=== PATIENT | female | born 1955 | race Caucasian/White ===

== ENCOUNTER 2024-04-24 11:37 | Day surgery (SDC) | payer MEDICARE ==
[~2024-04-24] VITALS: Ht 162.6 cm; Wt 63.0 kg
[~2024-04-24 11:37] MED LIST: CALC600C3 PO; CITA20TA6 PO; CYCLOPENTOLATE 1% OPHTH SOLN 2ML BTL OD SCH; DICY1CAP8 PO; MAGN400C PO; META0.52 PO; MIDAZOLAM INJ 2MG/2ML VIAL As Ordered ONE; PHENYLEPHRINE 10% OPHTH SOL 5ML OD PRN; POTA99CA2 PO; VALA500T5 PO; VITA100093 PO
[2024-04-24] MEDS: OFLOXACIN 0.3 % (OCUFLOX) OPTH SOL 5ML OD ONE (12:10)
[2024-04-24] MEDS: LIDOCAINE 3.5 % 1ML OPHTH TOPICAL GEL OU ONE (12:10)
[2024-04-24] MEDS: PHENYLEPHRINE 2.5% OPHTH SOL 2ML OD SCH (12:20)
[2024-04-24] MEDS: TROPICAMIDE 1% OPHTH SOLN 15ML OD SCH (12:20)
[2024-04-24] MEDS: BSS IRRIG/VANCO(10MG)/TOBRA(5MG)/EPINEPH(1:1000-0.5CC)500ML BAG-ORONLY As Ordered ONE (12:32)
[2024-04-24] MEDS: LIDOCAINE 1% SDV 5ML VIAL As Ordered ONE (12:32)
[2024-04-24] MEDS: CEFUROXIME 1MG/0.1ML INTRACAMERAL INJ As Ordered ONE (12:32)
[2024-04-24] MEDS ORDERED: fentaNYL 100 MCG/2 ML INJECTION As Ordered ONE (12:43)
[2024-04-24 13:27] VITALS: BP 138/73; TEMP 97.8; O2SAT 98
== END 2024-04-24 14:00 | disposition home or self-care (01) ==
LOC: M SDC 11:37
PROVIDERS: ATTEND Ophthalmology
DX: H25.9 Unspecified age-related cataract (principal); Z88.0 Allergy status to penicillin; Z88.8 Allergy status to other drugs, medicaments and biological substances; Z79.899 Other long term (current) drug therapy
CPT/HCPCS: 66984; 92015; J0697; J2250; J3010; V2632

== ENCOUNTER 2024-05-15 08:20 | Day surgery (SDC) | payer MEDICARE ==
[~2024-05-15] VITALS: Ht 163.8 cm; Wt 62.8 kg
[~2024-05-15 08:20] MED LIST changes: -CYCLOPENTOLATE 1% OPHTH SOLN 2ML BTL OD SCH; -PHENYLEPHRINE 10% OPHTH SOL 5ML OD PRN; +PHENYLEPHRINE 10% OPHTH SOL 5ML OS PRN
[2024-05-15] MEDS: OFLOXACIN 0.3 % (OCUFLOX) OPTH SOL 5ML OS ONE (09:48)
[2024-05-15] MEDS: LIDOCAINE 3.5 % 1ML OPHTH TOPICAL GEL OU ONE (09:48)
[2024-05-15] MEDS: PHENYLEPHRINE 2.5% OPHTH SOL 2ML OS SCH (09:49)
[2024-05-15] MEDS: TROPICAMIDE 1% OPHTH SOLN 15ML OS SCH (09:49)
[2024-05-15] MEDS: CYCLOPENTOLATE 1% OPHTH SOLN 2ML BTL OS SCH (09:49)
[2024-05-15] MEDS: LIDOCAINE 1% SDV 5ML VIAL As Ordered ONE (11:19)
[2024-05-15] MEDS: CEFUROXIME 1MG/0.1ML INTRACAMERAL INJ As Ordered ONE (11:19)
[2024-05-15] MEDS: BSS IRRIG/VANCO(10MG)/TOBRA(5MG)/EPINEPH(1:1000-0.5CC)500ML BAG-ORONLY As Ordered ONE (11:20)
[2024-05-15] MEDS ORDERED: fentaNYL 100 MCG/2 ML INJECTION As Ordered ONE (11:23)
[2024-05-15 11:34] VITALS: BP 119/64; TEMP 97.4; O2SAT 100
== END 2024-05-15 12:05 | disposition home or self-care (01) ==
LOC: M SDC 08:20
PROVIDERS: ATTEND Ophthalmology
DX: H25.12 Age-related nuclear cataract, left eye (principal); Z88.0 Allergy status to penicillin; Z88.8 Allergy status to other drugs, medicaments and biological substances; Z79.899 Other long term (current) drug therapy; Z98.41 Cataract extraction status, right eye
CPT/HCPCS: 66984; 92015; J0697; J2250; J3010; V2788